=== PATIENT | female | born 1960 | race Caucasian/White ===

== ENCOUNTER → 2016-10-12 | Outpatient (CLI) | payer BC ==
--- NOTE | 2016-10-12 16:04 | RADRPT ---
PROCEDURE: XR pelvis/right hip. CLINICAL INDICATION: Hip pain TECHNIQUE: AP pelvis/AP and lateral right hip views performed COMPARISON: No prior studies are available for comparison. FINDINGS: There is mild right hip osteoarthrosis. This is associated with joint space narrowing. There is nor mal mineralization. No fractures or osseous lesions are identified. The soft tissues are unremarka ble. IMPRESSION: Mild right hip osteoarthrosis (joint space narrowing). RPTAT: [facility] .Logan Armijo MD, MD Date Time Electronically viewed and signed by .Logan Armijo MD, MD on 10/12/2016 16:03 .B/
--- NOTE | 2016-10-12 16:06 | RADRPT ---
PROCEDURE: XR right knee. CLINICAL INDICATION: Knee pain TECHNIQUE: AP weightbearing, PA weightbearing, lateral weightbearing and sunrise views are availab le for review. COMPARISON: None available FINDINGS: There is mild osteoarthrosis involving the medial tibial femoral compartment, lateral tibial femoral compartment and patellofemoral compartment. This is associated with joint space narrowing and minim al osteophytosis. There are calcified loose bodies in the anterior joint (synovial osteochondromatos is). There is otherwise normal mineralization, architecture and alignment. No fractures are identified. No osseous lesions are identified. The soft tissues are unremarkable. IMPRESSION: Mild osteoarthrosis involving the medial tibial femoral compartment, lateral tibial femoral compartm ent and patellofemoral compartment. Synovial osteochondromatosis RPTAT: [facility] .Logan Armijo MD, Date Time Electronically viewed and signed by .Logan Armijo MD, on 10/12/2016 16:05 .B/
== END | disposition home or self-care (01) ==
LOC: HKI 15:09
PROVIDERS: ATTEND Orthopaedic Surgery
DX: M22.41 Chondromalacia patellae, right knee (principal); M25.561 Pain in right knee
CPT/HCPCS: 73502; 73564; G0463